=== PATIENT | male | born 1940 | race Two or more races ===

== ENCOUNTER 2021-10-09 14:54 | Inpatient (IN) | payer OTHER ==
[2021-10-09] MEDS ORDERED: SODIUM CHLORIDE 1,000 ML IV SCH (16:45)
[2021-10-09 17:50] LABS: INR 1.01 (0.83-1.09); PROTHROMBIN TIME (PATIENT) 11.6 SEC (9.7-13.0)
[2021-10-09 17:53] LABS: ACTIVATED PTT 36.2 SECONDS (25.2-36.5)
[2021-10-09 17:58] LABS: BASO % 0.4 % (0-2.0); EOS % 1.8 % (0-4.5); HEMOGLOBIN 14.9 GM/dL (11.7-16.9); LYMPH % 29.3 % (8-40); MCH 30.4 pg (25.7-33.7); MCHC 33.8 g/dl (32.0-35.9); MEAN CELL VOLUME 89.9 fl (80-96); MEAN PLT VOLUME 8.1 fl (7.5-11.1); MONO % 7.4 % (3.8-10.2); NEUT % 61.1 % (42.8-82.8); PLATELET COUNT 214 10^3/uL (134-434); RBC 4.89 M/mm3 (4.00-5.60); WHITE BLOOD COUNT 8.5 K/mm3 (4.0-10.0)
[2021-10-09 18:07] LABS: ALBUMIN 3.7 g/dl (3.4-5.0); CALCIUM 9.5 mg/dL (8.5-10.1)
[2021-10-09 18:09] LABS: BLOOD UREA NITROGEN 21.5 mg/dL (7-18)
[2021-10-09 18:11] LABS: CREATININE 1.4 mg/dL (0.55-1.3)
[2021-10-09 18:12] LABS: TOT PROT 7.4 g/dl (6.4-8.2)
[2021-10-09 18:14] LABS: BILIRUBIN,TOTAL 0.7 mg/dL (0.2-1)
[2021-10-09 19:28] LABS: EPI CELLS 1 /uL (0-25.1); HYALINE CASTS 1 /uL (0-3.1); PH,URINE 5.5 (5.0-8.0); URINE APPEARANCE CLOUDY; URINE BACTERIA 4999 /uL (0-1359); URINE BILIRUBIN NEGATIVE (NEGATIVE); URINE COLOR YELLOW; URINE GLUCOSE (UA) NEGATIVE (NEGATIVE); URINE KETONE NEGATIVE (NEGATIVE); URINE LEUK ESTERASE 3+ (NEGATIVE); URINE NITRITE NEGATIVE (NEGATIVE); URINE PROTEIN NEGATIVE (NEGATIVE); URINE RBC 7 /uL (0-23.9); URINE UROBILINOGEN 0.2 mg/dL (0.2-1.0); URINE WBC 406 /uL (0-25.8)
[2021-10-09] MEDS ORDERED: ASPIRIN 81 MG CHEWABLE TABLETS PO ONE (20:04)
[2021-10-09] MEDS ORDERED: ASPIRIN 81 MG CHEWABLE TABLETS ONE (20:46)
[2021-10-10] MEDS ORDERED: CEFTRIAXONE 1 GM in DEXTROSE 5%-WATER - 50 ML IVPB ONE (03:00)
[2021-10-10] MEDS ORDERED: DEXTROSE 5%-WATER - 50 ML IVPB ONE (03:19)
[2021-10-10] MEDS ORDERED: cefTRIAXone SODIUM 1 GM VIAL ONE (03:19)
[2021-10-10] MEDS: SODIUM CHLORIDE 1,000 ML IV SCH (03:22)
[2021-10-10 07:35] LABS: ALBUMIN 3.2 g/dl (3.4-5.0); MAGNESIUM 2.1 mg/dL (1.8-2.4)
[2021-10-10 07:36] LABS: BLOOD UREA NITROGEN 21.2 mg/dL (7-18)
[2021-10-10 07:38] LABS: CREATININE 1.1 mg/dL (0.55-1.3)
[2021-10-10 07:39] LABS: PHOSPHOROUS 4.1 mg/dL (2.5-4.9)
[2021-10-10 07:40] LABS: TOT PROT 6.5 g/dl (6.4-8.2)
[2021-10-10 07:41] LABS: BILIRUBIN,TOTAL 0.5 mg/dL (0.2-1)
[2021-10-10 08:01] LABS: BASO % 0.8 % (0-2.0); EOS % 3.5 % (0-4.5); HEMATOCRIT 42.3 % (35.4-49); HEMOGLOBIN 14.3 GM/dL (11.7-16.9); LYMPH % 41.5 % (8-40); MCH 30.2 pg (25.7-33.7); MCHC 33.8 g/dl (32.0-35.9); MEAN CELL VOLUME 89.3 fl (80-96); MEAN PLT VOLUME 8.4 fl (7.5-11.1); MONO % 7.9 % (3.8-10.2); NEUT % 46.3 % (42.8-82.8); PLATELET COUNT 204 10^3/uL (134-434); RBC 4.73 M/mm3 (4.00-5.60); RDW 13.9 % (11.9-15.9); WHITE BLOOD COUNT 6.7 K/mm3 (4.0-10.0)
[2021-10-10] MEDS: ASPIRIN COATED 81 MG TABLET.EC PO SCH (09:42)
[2021-10-10] MEDS: HEPARIN NA (PORCINE) 5,000 UNITS/ML 1ML VIAL SQ SCH ×2 (09:42→21:58)
[2021-10-10 14:42] VITALS: BMI 23.5
[2021-10-10] MEDS: ATORVASTATIN CA 40 MG TABLET (FP) PO SCH (21:58)
[2021-10-11] MEDS: SODIUM CHLORIDE 1,000 ML IV SCH ×2 (05:06→05:45)
[2021-10-11 06:56] LABS: BASO % 0.4 % (0-2.0); EOS % 3.2 % (0-4.5); HEMATOCRIT 42.3 % (35.4-49); HEMOGLOBIN 14.4 GM/dL (11.7-16.9); LYMPH % 39.5 % (8-40); MCH 30.4 pg (25.7-33.7); MEAN CELL VOLUME 89.5 fl (80-96); MEAN PLT VOLUME 8.2 fl (7.5-11.1); MONO % 8.5 % (3.8-10.2); NEUT % 48.4 % (42.8-82.8); PLATELET COUNT 194 10^3/uL (134-434); RBC 4.72 M/mm3 (4.00-5.60); RDW 14.1 % (11.9-15.9); WHITE BLOOD COUNT 7.4 K/mm3 (4.0-10.0)
[2021-10-11 07:35] LABS: ALBUMIN 3.1 g/dl (3.4-5.0); CALCIUM 8.9 mg/dL (8.5-10.1)
[2021-10-11 07:36] LABS: BLOOD UREA NITROGEN 25.8 mg/dL (7-18)
[2021-10-11 07:39] LABS: CREATININE 1.4 mg/dL (0.55-1.3)
[2021-10-11 07:40] LABS: TOT PROT 6.5 g/dl (6.4-8.2)
[2021-10-11] MEDS ORDERED: cefTRIAXone SODIUM 1 GM VIAL ONE (08:12)
[2021-10-11] MEDS ORDERED: DEXTROSE 5%-WATER - 50 ML IVPB ONE (08:13)
[2021-10-11] MEDS: CEFTRIAXONE 1 GM in DEXTROSE 5%-WATER - 50 ML IVPB SCH (09:20)
[2021-10-11] MEDS: ASPIRIN COATED 81 MG TABLET.EC PO SCH (09:21)
[2021-10-11] MEDS: HEPARIN NA (PORCINE) 5,000 UNITS/ML 1ML VIAL SQ SCH ×2 (09:21→22:06)
[2021-10-11] MEDS: ATORVASTATIN CA 40 MG TABLET (FP) PO SCH (22:06)
[2021-10-12] MEDS ORDERED: cefTRIAXone SODIUM 1 GM VIAL ONE (07:49)
[2021-10-12] MEDS ORDERED: DEXTROSE 5%-WATER - 50 ML IVPB ONE (07:49)
[2021-10-12 08:13] VITALS: TEMP 99.2
[2021-10-12] MEDS: ASPIRIN COATED 81 MG TABLET.EC PO SCH (09:29)
[2021-10-12] MEDS: CEFTRIAXONE 1 GM in DEXTROSE 5%-WATER - 50 ML IVPB SCH (09:29)
[2021-10-12] MEDS: HEPARIN NA (PORCINE) 5,000 UNITS/ML 1ML VIAL SQ SCH (09:29)
[2021-10-12 12:22] VITALS: BP 125/71; PULSE 65
[2021-10-12] MEDS ORDERED: ATORVASTATIN CA 40 MG TABLET (FP) PO ONE (12:34)
== END 2021-10-12 14:22 | disposition home or self-care (01) | DRG 65 ==
LOC: JER 14:54 → JERBED 20:19 → J2W 10-10 02:39
PROVIDERS: ADMIT Hospitalist; ATTEND Internal Medicine
DX: I63.9 Cerebral infarction, unspecified (principal); N39.0 Urinary tract infection, site not specified; N17.9 Acute kidney failure, unspecified; I10 Essential (primary) hypertension; E78.5 Hyperlipidemia, unspecified; N40.0 Benign prostatic hyperplasia without lower urinary tract symptoms; R29.702 NIHSS score 2
CPT/HCPCS: 36415; 70450-TC; 70551-TC; 71045-TC-FY; 76775-TC; 80053; 80061; 81003; 82550; 83036; 83735; 84100; 84484; 85025; 85610; 85730; 86850; 86900; 86901; 93005; 93010; 93880-TC; 97116-GP; 97162-GP; 99285-25; C9803; J1644; U0003; U0005

== ENCOUNTER 2022-09-23 17:18 | Observation (INO) | payer OTHER ==
[2022-09-23 17:39] VITALS: BMI 25.7
[2022-09-23 20:03] LABS: BASO % 0.6 % (0-2.0); EOS % 2.9 % (0-4.5); HEMATOCRIT 40.5 % (35.4-49); HEMOGLOBIN 13.3 GM/dL (11.7-16.9); LYMPH % 32.1 % (8-40); MCHC 32.9 g/dl (32.0-35.9); MEAN CELL VOLUME 91.3 fl (80-96); MEAN PLT VOLUME 9.1 fl (7.5-11.1); MONO % 7.8 % (3.8-10.2); NEUT % 56.6 % (42.8-82.8); PLATELET COUNT 223 10^3/uL (134-434); RBC 4.44 M/mm3 (4.00-5.60); RDW 14.4 % (11.9-15.9); WHITE BLOOD COUNT 6.5 K/mm3 (4.0-10.0)
[2022-09-23 20:06] LABS: EPI CELLS 20 /uL (0-25.1); HYALINE CASTS 0 /uL (0-3.1); PH,URINE 7.5 (5.0-8.0); URINE APPEARANCE CLEAR; URINE BACTERIA 44 /uL (0-1359); URINE BILIRUBIN NEGATIVE (NEGATIVE); URINE COLOR YELLOW; URINE GLUCOSE (UA) NEGATIVE (NEGATIVE); URINE KETONE TRACE (NEGATIVE); URINE LEUK ESTERASE TRACE (NEGATIVE); URINE NITRITE NEGATIVE (NEGATIVE); URINE PROTEIN 1+ (NEGATIVE); URINE RBC 216 /uL (0-23.9); URINE WBC 34 /uL (0-25.8)
[2022-09-23 20:13] LABS: INR 0.96 (0.83-1.09); PROTHROMBIN TIME (PATIENT) 11.1 SEC (9.7-13.0)
[2022-09-23 20:16] LABS: ACTIVATED PTT 34.1 SECONDS (25.2-36.5)
[2022-09-23 20:19] LABS: CALCIUM 8.9 mg/dL (8.5-10.1)
[2022-09-23 20:21] LABS: ALBUMIN 3.4 g/dl (3.4-5.0); BLOOD UREA NITROGEN 16.2 mg/dL (7-18); MAGNESIUM 2.2 mg/dL (1.8-2.4)
[2022-09-23 20:23] LABS: CREATININE 1.4 mg/dL (0.55-1.3)
[2022-09-23 20:25] LABS: BILIRUBIN,TOTAL 0.4 mg/dL (0.2-1)
[2022-09-23 20:26] LABS: TOT PROT 6.9 g/dl (6.4-8.2)
[2022-09-23] MEDS ORDERED: SODIUM CHLORIDE 1,000 ML IV SCH (23:45)
[2022-09-24] MEDS ORDERED: LEVOTHYROXINE NA 50 MCG TABLET (FP) PO SCH (07:00)
[2022-09-24 07:53] LABS: CALCIUM 8.2 mg/dL (8.5-10.1)
[2022-09-24 07:54] LABS: ALBUMIN 3.1 g/dl (3.4-5.0); BLOOD UREA NITROGEN 15.9 mg/dL (7-18)
[2022-09-24 07:57] LABS: CREATININE 1.2 mg/dL (0.55-1.3); PHOSPHOROUS 4.1 mg/dL (2.5-4.9)
[2022-09-24 07:58] LABS: TOT PROT 6.1 g/dl (6.4-8.2)
[2022-09-24 08:10] LABS: BASO % 0.7 % (0-2.0); EOS % 3.3 % (0-4.5); HEMATOCRIT 37.1 % (35.4-49); HEMOGLOBIN 12.5 GM/dL (11.7-16.9); LYMPH % 35.8 % (8-40); MCH 30.5 pg (25.7-33.7); MCHC 33.8 g/dl (32.0-35.9); MEAN CELL VOLUME 90.2 fl (80-96); MEAN PLT VOLUME 9.3 fl (7.5-11.1); NEUT % 51.2 % (42.8-82.8); PLATELET COUNT 199 10^3/uL (134-434); RBC 4.11 M/mm3 (4.00-5.60); WHITE BLOOD COUNT 7.1 K/mm3 (4.0-10.0)
[2022-09-24 08:34] LABS: BILIRUBIN,TOTAL 0.5 mg/dL (0.2-1)
[2022-09-24] MEDS ORDERED: LISINOPRIL 20 MG TABLET ONE (08:40)
[2022-09-24] MEDS ORDERED: ASPIRIN COATED 81 MG TABLET.EC ONE (08:40)
[2022-09-24] MEDS ORDERED: LEVOTHYROXINE NA 50 MCG TABLET (FP) ONE (08:40)
[2022-09-24] MEDS ORDERED: PANTOPRAZOLE 40 MG TABLET PO SCH (10:00)
[2022-09-24] MEDS ORDERED: DOXAZOSIN MESYLATE 8 MG TABLET PO SCH (10:00)
[2022-09-24] MEDS ORDERED: FINASTERIDE 5 MG TABLET (FP) PO SCH (10:00)
[2022-09-24] MEDS ORDERED: PATIENT'S OWN MEDICATION (NON-FORMULARY) (Linaclotide [Linzess] 145 MCG Capsule) PO SCH (10:00)
[2022-09-24] MEDS ORDERED: ASPIRIN COATED 81 MG TABLET.EC PO SCH (10:00)
[2022-09-24] MEDS ORDERED: PANTOPRAZOLE 40 MG TABLET PO ONE (10:23)
[2022-09-24] MEDS ORDERED: LOSARTAN POTASSIUM 50 MG TABLET PO SCH (11:00)
[2022-09-24] MEDS ORDERED: LOSARTAN POTASSIUM 50 MG TABLET ONE (13:07)
[2022-09-24] MEDS ORDERED: EZETIMIBE 10 MG TABLET (FP) PO SCH (14:30)
[2022-09-24] MEDS ORDERED: ATORVASTATIN CA 40 MG TABLET (FP) PO SCH (22:00)
[2022-09-24] MEDS ORDERED: DONEPEZIL HCL 5 MG TABLET (FP) PO SCH (22:00)
[2022-09-24] MEDS ORDERED: DONEPEZIL HCL 5 MG TABLET (FP) ONE (22:08)
[2022-09-24] MEDS ORDERED: ATORVASTATIN CA 40 MG TABLET (FP) ONE (22:08)
[2022-09-25 01:10] VITALS: BP 137/68; PULSE 69; RESP 16; TEMP 98.2
[2022-09-25 06:41] LABS: HEMATOCRIT 38.5 % (35.4-49); HEMOGLOBIN 13.1 GM/dL (11.7-16.9); MCH 30.6 pg (25.7-33.7); MCHC 33.9 g/dl (32.0-35.9); MEAN CELL VOLUME 90.2 fl (80-96); MEAN PLT VOLUME 9.1 fl (7.5-11.1); PLATELET COUNT 209 10^3/uL (134-434); RBC 4.26 M/mm3 (4.00-5.60); WHITE BLOOD COUNT 6.3 K/mm3 (4.0-10.0)
[2022-09-25 07:14] LABS: BLOOD UREA NITROGEN 21.6 mg/dL (7-18); CALCIUM 8.6 mg/dL (8.5-10.1)
[2022-09-25 07:15] LABS: MAGNESIUM 2.2 mg/dL (1.8-2.4)
[2022-09-25 07:17] LABS: CREATININE 1.3 mg/dL (0.55-1.3); PHOSPHOROUS 4.4 mg/dL (2.5-4.9)
== END 2022-09-25 10:03 | disposition home or self-care (01) ==
LOC: JER 17:18 → JERBED 09-24 07:36
PROVIDERS: ADMIT Internal Medicine; ATTEND Internal Medicine
DX: G45.9 Transient cerebral ischemic attack, unspecified (principal); N40.0 Benign prostatic hyperplasia without lower urinary tract symptoms; E78.5 Hyperlipidemia, unspecified; I45.10 Unspecified right bundle-branch block; E07.9 Disorder of thyroid, unspecified; R20.0 Anesthesia of skin; I10 Essential (primary) hypertension; Z87.891 Personal history of nicotine dependence; Z86.73 Personal history of transient ischemic attack (TIA), and cerebral infarction without residual deficits
CPT/HCPCS: 0241U-QW; 36415; 70450-TC; 71045-TC-FY; 80048; 80053; 80061; 81003; 82550; 83036; 83735; 84100; 84439; 84443; 84484; 85025; 85027; 85610; 85730; 86850; 86900; 86901; 87077; 87086; 93005; 93010; 93306-TC; 93880-TC; 99285-25; G0378

== ENCOUNTER 2023-03-08 19:31 | Emergency (ER) | payer OTHER ==
[2023-03-08 19:46] VITALS: BP 117/62; PULSE 69; RESP 18; BMI 25.8
[2023-03-08 21:15] LABS: PH,URINE 7.5 (5.0-8.0); URINE APPEARANCE TURBID; URINE BILIRUBIN MODERATE (NEGATIVE); URINE COLOR RED; URINE GLUCOSE (UA) NEGATIVE (NEGATIVE); URINE KETONE NEGATIVE (NEGATIVE); URINE LEUK ESTERASE 4+ (NEGATIVE); URINE NITRITE POSITIVE (NEGATIVE); URINE PROTEIN 4+ (NEGATIVE)
[2023-03-08 21:16] LABS: EPI CELLS 18.4 /uL (0-25.1); HYALINE CASTS 742.91 /uL (0-3.1); URINE BACTERIA 3286.3 /uL (0-1359); URINE RBC 9879.9 /uL (0-23.9); URINE WBC 17100.5 /uL (0-25.8)
[2023-03-08] MEDS ORDERED: SODIUM CHLORIDE 0.9% 500 ML INFUS.BAG IV ONE (21:38)
[2023-03-08 22:12] VITALS: TEMP 97.7
[2023-03-08] MEDS ORDERED: PHENAZOPYRIDINE HCL 100 MG TABLET (FP) PO ONE (22:30)
[2023-03-08] MEDS ORDERED: SULFAMETHOXAZOLE/TRIMETHOPRIM 800MG/160MG D.S. TABLET PO ONE (22:31)
[2023-03-08] MEDS ORDERED: IBUPROFEN 600 MG TABLET (FP) PO ONE (22:31)
[2023-03-08] MEDS ORDERED: PHENAZOPYRIDINE HCL 100 MG TABLET (FP) ONE (22:34)
[2023-03-08] MEDS ORDERED: SULFAMETHOXAZOLE/TRIMETHOPRIM 800MG/160MG D.S. TABLET ONE (22:34)
[2023-03-08] MEDS ORDERED: ACETAMINOPHEN 325 MG TABLET (FP) PO ONE (22:34)
[2023-03-08] MEDS ORDERED: ACETAMINOPHEN 325 MG TABLET (FP) ONE (22:36)
== END 2023-03-08 22:56 | disposition home or self-care (01) ==
LOC: JER 19:31
DX: R30.0 Dysuria (principal); N30.91 Cystitis, unspecified with hematuria
CPT/HCPCS: 81003; 99284-25

== ENCOUNTER 2024-10-10 21:14 | Observation (INO) | payer OTHER ==
[2024-10-10] MEDS: SODIUM CHLORIDE 0.9% 500 ML INFUS.BAG IV ONE (22:00)
[2024-10-10] MEDS ORDERED: ACETAMINOPHEN INJECTION 100 ML ONE (22:41)
[2024-10-10] MEDS: ACETAMINOPHEN 1000 MG/100 ML BAG IVPB ONE (22:45)
[2024-10-11] MEDS ORDERED: LOPERAMIDE HCL 2 MG CAPSULE GT PRN (03:14)
[2024-10-11 04:54] VITALS: BMI 22.6
[2024-10-11] MEDS: LEVOTHYROXINE NA 50 MCG TABLET (FP) GT SCH (06:20)
[2024-10-11] MEDS: DEXTROSE 5%-NORMAL SALINE 1,000 ML IV SCH (06:24)
[2024-10-11] MEDS ORDERED: MINERAL OIL ENEMA 133 ML ENEMA RC ONE ×2 (08:30→10:30)
[2024-10-11] MEDS: AMINO ACIDS/PROTEIN HYDROLYS 30 ML LIQUID.PKT GT SCH (08:57)
[2024-10-11 09:24] LABS: HEMATOCRIT 38.3 % (35.4-49); MCH 29.9 pg (25.7-33.7); MCHC 33.8 g/dl (32.0-35.9); MEAN CELL VOLUME 88.4 fl (80-96); MEAN PLT VOLUME 8.3 fl (7.5-11.1); PLATELET COUNT 292 10^3/uL (134-434); RBC 4.34 M/mm3 (4.00-5.60); RDW 14.8 % (11.9-15.9); WHITE BLOOD COUNT 11.2 K/mm3 (4.0-10.0)
[2024-10-11 09:44] LABS: POTASSIUM 3.7 mmol/L (3.5-5.1)
[2024-10-11] MEDS ORDERED: PATIENT'S OWN MEDICATION (NON-FORMULARY) (Alfuzosin Hcl [Uroxatral] 10 MG Tab.Er.24h) GT SCH (10:00)
[2024-10-11 10:04] LABS: ALBUMIN 2.3 g/dl (3.4-5.0); BLOOD UREA NITROGEN 27.9 mg/dL (7-18); CALCIUM 8.8 mg/dL (8.5-10.1)
[2024-10-11 10:07] LABS: CREATININE 0.7 mg/dL (0.55-1.3)
[2024-10-11 10:09] LABS: BILIRUBIN,TOTAL 0.7 mg/dL (0.2-1); TOT PROT 5.6 g/dl (6.4-8.2)
[2024-10-11] MEDS: levETIRAcetam 500 MG/5 ML ORAL SOLUTION (UNIT-DOSE CUPS) GT SCH (10:15)
[2024-10-11] MEDS: DOXAZOSIN MESYLATE 2 MG TABLET GT SCH (10:15)
[2024-10-11] MEDS: POLYETHYLENE GLYCOL (HEALTHYLAX) 3350 17 GM PACKET PO SCH (10:15)
[2024-10-11] MEDS: EZETIMIBE 10 MG TABLET (FP) GT SCH (10:18)
[2024-10-11] MEDS: FAMOTIDINE 20 MG/2.5 ML ORAL LIQUID PO SCH (10:18)
[2024-10-11] MEDS: FINASTERIDE 5 MG TABLET (FP) GT SCH (10:18)
[2024-10-11] MEDS: METOPROLOL TARTRATE 25 MG TABLET (FP) GT SCH (10:18)
[2024-10-11] MEDS: POTASSIUM CHLORIDE ORAL LIQUID 20 MEQ/15 ML GT SCH (10:18)
[2024-10-11] MEDS: MEMANTINE HCL 10 MG TABLET (FP) GT SCH (10:18)
[2024-10-11] MEDS: POLYETHYLENE GLYCOL (HEALTHYLAX) 3350 17 GM PACKET GT SCH (14:53)
[2024-10-11] MEDS: ACETAMINOPHEN 650 MG/20.3 ML ORAL SOLUTION (CUPS) PO ONE (16:22)
[2024-10-11] MEDS: DONEPEZIL HCL 10 MG TABLET (FP) GT SCH (21:44)
[2024-10-11] MEDS: ATORVASTATIN CA 80 MG TABLET (FP) GT SCH (21:44)
[2024-10-12 08:53] LABS: HEMATOCRIT 39.2 % (35.4-49); HEMOGLOBIN 12.9 GM/dL (11.7-16.9); MCH 29.6 pg (25.7-33.7); MCHC 32.8 g/dl (32.0-35.9); MEAN CELL VOLUME 90.4 fl (80-96); MEAN PLT VOLUME 8.6 fl (7.5-11.1); PLATELET COUNT 273 10^3/uL (134-434); RBC 4.34 M/mm3 (4.00-5.60); RDW 14.7 % (11.9-15.9); WHITE BLOOD COUNT 10.3 K/mm3 (4.0-10.0)
[2024-10-12 09:18] LABS: POTASSIUM 3.8 mmol/L (3.5-5.1)
[2024-10-12 09:30] LABS: BLOOD UREA NITROGEN 26.8 mg/dL (7-18); CALCIUM 8.7 mg/dL (8.5-10.1); MAGNESIUM 2.3 mg/dL (1.8-2.4)
[2024-10-12 09:33] LABS: CREATININE 0.9 mg/dL (0.55-1.3)
[2024-10-12 09:34] LABS: PHOSPHOROUS 3.2 mg/dL (2.5-4.9)
[2024-10-12 15:50] VITALS: RESP 18
[2024-10-13 10:08] VITALS: BP 132/76; PULSE 98; TEMP 98.6
[2024-10-13 10:09] LABS: HEMATOCRIT 38.6 % (35.4-49); MCH 30.3 pg (25.7-33.7); MCHC 33.7 g/dl (32.0-35.9); MEAN CELL VOLUME 89.9 fl (80-96); MEAN PLT VOLUME 8.1 fl (7.5-11.1); PLATELET COUNT 235 10^3/uL (134-434); RBC 4.29 M/mm3 (4.00-5.60); RDW 14.7 % (11.9-15.9); WHITE BLOOD COUNT 8.3 K/mm3 (4.0-10.0)
[2024-10-13] MEDS: METOCLOPRAMIDE HCL 10 MG/10 ML UNIT DOSE CUP GT SCH (11:48)
== END 2024-10-13 12:48 | disposition home or self-care (01) ==
LOC: JER 21:14 → JERBED 10-11 01:42 → J5S 10-11 04:39
PROVIDERS: ADMIT Internal Medicine; ATTEND Internal Medicine
PROC: 3E033NZ Introduction of Analgesics, Hypnotics, Sedatives into Peripheral Vein, Percutaneous Approach (ICD-10-PCS; principal; 2024-10-11)
PROC: 3E0337Z Introduction of Electrolytic and Water Balance Substance into Peripheral Vein, Percutaneous Approach (ICD-10-PCS; 2024-10-11)
DX: R11.10 Vomiting, unspecified (principal); K59.00 Constipation, unspecified; E78.5 Hyperlipidemia, unspecified; E03.9 Hypothyroidism, unspecified; I10 Essential (primary) hypertension; I69.351 Hemiplegia and hemiparesis following cerebral infarction affecting right dominant side; N40.0 Benign prostatic hyperplasia without lower urinary tract symptoms; F03.90 Unspecified dementia, unspecified severity, without behavioral disturbance, psychotic disturbance, mood disturbance, and anxiety; Z87.440 Personal history of urinary (tract) infections; Z87.442 Personal history of urinary calculi; Z90.89 Acquired absence of other organs; Z87.891 Personal history of nicotine dependence
CPT/HCPCS: 36415; 74018-TC-FY; 74177-TC; 80048; 80053; 82977; 83735; 84100; 85027; 93005; 93010; 96361; 96374; 97161-GP; 99285-25; G0378; J0131; Q9967

== ENCOUNTER 2024-11-01 03:56 | Inpatient (IN) | payer OTHER ==
[2024-11-01] MEDS ORDERED: ACETAMINOPHEN INJECTION 100 ML ONE (04:44)
[2024-11-01] MEDS ORDERED: ONDANSETRON 4 MG/2 ML VIAL ONE (04:44)
[2024-11-01] MEDS: ONDANSETRON 4 MG/2 ML VIAL IVPUSH ONE (05:00)
[2024-11-01] MEDS: ACETAMINOPHEN 1000 MG/100 ML BAG IVPB ONE (05:00)
[2024-11-01 05:23] LABS: VENOUS BASE EXCESS 0.5 mmol/L (-2-2); VENOUS O2 SATURATION 91.1 % (70-80); VENOUS PCO2 38.6 mmHg (38-52); VENOUS PH 7.425 (7.310-7.410)
[2024-11-01 05:33] LABS: INR 1.17 (0.83-1.09); PROTHROMBIN TIME (PATIENT) 12.8 SEC (9.7-13.0)
[2024-11-01 05:36] LABS: ACTIVATED PTT 33.8 SECONDS (25.2-36.5)
[2024-11-01 05:39] LABS: POTASSIUM 3.3 mmol/L (3.5-5.1)
[2024-11-01 05:41] LABS: BLOOD UREA NITROGEN 17.5 mg/dL (7-18); CALCIUM 8.1 mg/dL (8.5-10.1); MAGNESIUM 1.7 mg/dL (1.8-2.4)
[2024-11-01 05:42] LABS: ALBUMIN 1.9 g/dl (3.4-5.0)
[2024-11-01 05:44] LABS: CREATININE 0.9 mg/dL (0.55-1.3)
[2024-11-01 05:47] LABS: BILIRUBIN,TOTAL 0.8 mg/dL (0.2-1); TOT PROT 5.7 g/dl (6.4-8.2)
[2024-11-01 06:46] LABS: URINE APPEARANCE TURBID; URINE COLOR ORANGE
[2024-11-01 07:07] LABS: URINE BILIRUBIN SMALL (NEGATIVE); URINE GLUCOSE (UA) NEGATIVE (NEGATIVE); URINE KETONE NEGATIVE (NEGATIVE)
[2024-11-01 07:08] LABS: URINE LEUK ESTERASE MODERATE (NEGATIVE); URINE NITRITE POSITIVE (NEGATIVE); URINE PROTEIN 300 (NEGATIVE); URINE UROBILINOGEN 0.2 mg/dL (0.2-1.0)
[2024-11-01 07:09] LABS: EPI CELLS 8.6 /uL (0-25.1); HYALINE CASTS 489.4 /uL (0-3.1); URINE RBC 17311.4 /uL (0-23.9); URINE WBC 12335.4 /uL (0-25.8)
[2024-11-01 07:10] LABS: URINE BACTERIA 885.4 /uL (0-1359)
[2024-11-01] MEDS: LACTATED RINGERS SOLUTION 1000 ML INFUS.BAG IV ONE (07:12)
[2024-11-01] MEDS ORDERED: PIPERACILLIN/TAZOB 4.5 GM 4.5 GM/100 ML BAG IVPB ONE (07:38)
[2024-11-01] MEDS ORDERED: HEPARIN INFUSION - 500 ML IVPB SCH (07:45)
[2024-11-01] MEDS: PIPERACILLIN/TAZOB 4.5 GM 4.5 GM in DEXTROSE 5%-WATER 100 ML IVPB ONE (07:53)
[2024-11-01] MEDS ORDERED: MAGNESIUM SULF 50% (8.12 MEQ/2 ML-1 GM VIAL) IVPB ONE (07:57)
[2024-11-01 08:31] LABS: ABSOLUTE IMMATURE GRANULOCYTES 0.03 x10^3/uL (0.0-0.031); BASOPHILS # 0.01 x10^3/uL (0.01-0.08); EOSINOPHIL % 0.1 % (0.8-7.0); EOSINOPHILS # 0.01 x10^3/uL (0.04-0.54); HEMATOCRIT 39.3 % (40.1-51.0); HEMOGLOBIN 12.5 g/dL (13.7-17.5); MCHC 31.8 g/dl (32.3-36.5); MEAN CELL VOLUME 90.6 fl (79.0-92.2); MEAN PLT VOLUME 9.3 fl (9.4-12.4); MONOCYTE # 0.69 x10^3/uL (0.30-0.82); MONOCYTE % 6.1 % (5.3-12.2); PLATELET COUNT 301 x10^3/uL (163-337); RDW 13.2 % (12.6-16.6)
[2024-11-01] MEDS ORDERED: HEPARIN NA (PORCINE) 5,000 UNITS/ML 1ML VIAL IVPUSH PRN (09:08)
[2024-11-01] MEDS ORDERED: MAGNESIUM SULFATE IN WATER 2 GM/50 ML IVPB IVPB ONE (09:12)
[2024-11-01] MEDS: HEPARIN NA (PORCINE) 5,000 UNITS/ML 1ML VIAL IVPUSH ONE (09:20)
[2024-11-01] MEDS: MAGNESIUM SULF 50% (8.12 MEQ/2 ML-1 GM VIAL) IVPB ONE (09:21)
[2024-11-01] MEDS ORDERED: HEPARIN INFUSION - 25,000 UNITS/500 ML INFUS.BAG IVPB ONE (09:46)
[2024-11-01] MEDS ORDERED: HEPARIN NA (PORCINE) 5,000 UNITS/ML 1ML VIAL ONE (09:48)
[2024-11-01] MEDS: HEPARIN INFUSION - 25,000 UNITS/500 ML INFUS.BAG IVPB SCH (10:00)
[2024-11-01] MEDS ORDERED: METOPROLOL TARTRATE 25 MG TABLET (FP) ONE (12:20)
[2024-11-01] MEDS ORDERED: POTASSIUM CHLORIDE ORAL LIQUID 20 MEQ/15 ML ONE (12:21)
[2024-11-01] MEDS ORDERED: levETIRAcetam 500 MG/5 ML ORAL SOLUTION (UNIT-DOSE CUPS) ONE (12:21)
[2024-11-01] MEDS: levETIRAcetam 500 MG/5 ML ORAL SOLUTION (UNIT-DOSE CUPS) GT SCH (12:36)
[2024-11-01] MEDS: POTASSIUM CHLORIDE ORAL LIQUID 20 MEQ/15 ML GT ONE (12:37)
[2024-11-01] MEDS: METOPROLOL TARTRATE 25 MG TABLET (FP) GT SCH (12:37)
[2024-11-01] MEDS ORDERED: POLYETHYLENE GLYCOL 3350 255 GM BTL PO PRN (12:57)
[2024-11-01] MEDS ORDERED: POLYETHYLENE GLYCOL (HEALTHYLAX) 3350 17 GM PACKET PO PRN (12:59)
[2024-11-01] MEDS: SODIUM CHLORIDE 1,000 ML IV SCH (14:48)
[2024-11-01 15:02] LABS: ABSOLUTE IMMATURE GRANULOCYTES 0.05 x10^3/uL (0.0-0.031); BASOPHILS # 0.05 x10^3/uL (0.01-0.08); EOSINOPHIL % 0.1 % (0.8-7.0); EOSINOPHILS # 0.01 x10^3/uL (0.04-0.54); HEMATOCRIT 42.6 % (40.1-51.0); HEMOGLOBIN 13.4 g/dL (13.7-17.5); MCHC 31.5 g/dl (32.3-36.5); MEAN CELL VOLUME 90.1 fl (79.0-92.2); MEAN PLT VOLUME 9.3 fl (9.4-12.4); MONOCYTE # 0.55 x10^3/uL (0.30-0.82); MONOCYTE % 5.1 % (5.3-12.2); RDW 13.3 % (12.6-16.6)
[2024-11-01 16:11] LABS: PLATELET COUNT 390 x10^3/uL (163-337)
[2024-11-01 21:10] LABS: HEMATOCRIT 39.6 % (40.1-51.0); HEMOGLOBIN 12.4 g/dL (13.7-17.5); MCHC 31.3 g/dl (32.3-36.5); MEAN PLT VOLUME 9.3 fl (9.4-12.4); PLATELET COUNT 347 x10^3/uL (163-337); RDW 13.5 % (12.6-16.6)
[2024-11-01] MEDS: HEPARIN - 25,000 UNIT in SODIUM CHLORIDE 495 ML IV SCH (21:20)
[2024-11-01] MEDS: DONEPEZIL HCL 10 MG TABLET (FP) GT SCH (22:01)
[2024-11-01] MEDS: ATORVASTATIN CA 80 MG TABLET (FP) GT SCH (22:01)
[2024-11-02] MEDS: ENOXAPARIN NA (PORCINE) 80 MG/0.8 ML DISP.SYRIN SQ SCH (05:34)
[2024-11-02] MEDS: LEVOTHYROXINE NA 50 MCG TABLET (FP) GT SCH (06:57)
[2024-11-02 07:24] LABS: HEMATOCRIT 36.2 % (40.1-51.0); HEMOGLOBIN 11.3 g/dL (13.7-17.5); MCHC 31.2 g/dl (32.3-36.5); MEAN PLT VOLUME 9.7 fl (9.4-12.4); PLATELET COUNT 329 x10^3/uL (163-337); RDW 13.7 % (12.6-16.6)
[2024-11-02 07:44] LABS: POTASSIUM 3.9 mmol/L (3.5-5.1)
[2024-11-02 08:00] LABS: CALCIUM 8.2 mg/dL (8.5-10.1)
[2024-11-02 08:01] LABS: BLOOD UREA NITROGEN 23.1 mg/dL (7-18); MAGNESIUM 2.2 mg/dL (1.8-2.4)
[2024-11-02 08:03] LABS: CREATININE 0.8 mg/dL (0.55-1.3)
[2024-11-02 08:04] LABS: PHOSPHOROUS 2.5 mg/dL (2.5-4.9)
[2024-11-02] MEDS ORDERED: PANTOPRAZOLE 40 MG TABLET PO SCH (10:00)
[2024-11-02] MEDS ORDERED: AZITHROMYCIN IVPB 500 MG/250 ML BAG IVPB SCH (10:00)
[2024-11-02] MEDS: POTASSIUM CHLORIDE ORAL LIQUID 20 MEQ/15 ML GT SCH (11:43)
[2024-11-02] MEDS: FAMOTIDINE 20 MG/2.5 ML ORAL LIQUID GT SCH (11:44)
[2024-11-02] MEDS: FINASTERIDE 5 MG TABLET (FP) GT SCH (11:44)
[2024-11-02] MEDS: metoPROLOL SUCCINATE 25 MG TAB.SR.24H (FP) PO SCH (11:44)
[2024-11-02] MEDS: AMINO ACIDS/PROTEIN HYDROLYS 30 ML LIQUID.PKT GT SCH (11:44)
[2024-11-02] MEDS: MEMANTINE HCL 10 MG TABLET (FP) GT SCH (11:44)
[2024-11-02] MEDS: CEFTRIAXONE 1 G/50 ML PREMIX 50 ML IVPB SCH (11:45)
[2024-11-02] MEDS: DOXYCYCLINE INJECTION 100 MG in DEXTROSE 5%-WATER 100 ML IVPB SCH (11:45)
[2024-11-02] MEDS: EZETIMIBE 10 MG TABLET (FP) GT SCH (11:45)
[2024-11-02] MEDS: TERAZOSIN HCL 1 MG CAPSULE GT SCH (11:46)
[2024-11-02] MEDS ORDERED: HEPARIN NA (PORCINE) 5,000 UNITS/ML 1ML VIAL IVPUSH PRN ×2 (13:47)
[2024-11-02] MEDS: HEPARIN - 25,000 UNIT in SODIUM CHLORIDE 495 ML IV SCH (21:23)
[2024-11-03 07:57] LABS: HEMATOCRIT 33.9 % (40.1-51.0); HEMOGLOBIN 10.4 g/dL (13.7-17.5); MCHC 30.7 g/dl (32.3-36.5); MEAN CELL VOLUME 91.4 fl (79.0-92.2); MEAN PLT VOLUME 9.9 fl (9.4-12.4); PLATELET COUNT 304 x10^3/uL (163-337); RDW 13.9 % (12.6-16.6)
[2024-11-03 08:15] LABS: POTASSIUM 3.6 mmol/L (3.5-5.1)
[2024-11-03 08:25] LABS: BLOOD UREA NITROGEN 26.4 mg/dL (7-18)
[2024-11-03 08:26] LABS: ALBUMIN 1.6 g/dl (3.4-5.0); CALCIUM 7.9 mg/dL (8.5-10.1); MAGNESIUM 1.9 mg/dL (1.8-2.4)
[2024-11-03 08:29] LABS: CREATININE 0.8 mg/dL (0.55-1.3); PHOSPHOROUS 2.3 mg/dL (2.5-4.9)
[2024-11-03 08:30] LABS: BILIRUBIN,TOTAL 0.4 mg/dL (0.2-1)
[2024-11-03 14:33] VITALS: BMI 20.3
[2024-11-04] MEDS: ACETAMINOPHEN 1000 MG/100 ML BAG IVPB ONE ×2 (06:30→19:54)
[2024-11-04] MEDS ORDERED: METOPROLOL TARTRATE 5 MG/5 ML VIAL IVPUSH PRN (06:32)
[2024-11-04 09:41] LABS: HEMATOCRIT 29.3 % (40.1-51.0); HEMOGLOBIN 9.1 g/dL (13.7-17.5); MCHC 31.1 g/dl (32.3-36.5); MEAN CELL VOLUME 90.7 fl (79.0-92.2); MEAN PLT VOLUME 9.6 fl (9.4-12.4); PLATELET COUNT 265 x10^3/uL (163-337); RDW 13.7 % (12.6-16.6)
[2024-11-04 09:57] LABS: POTASSIUM 3.5 mmol/L (3.5-5.1)
[2024-11-04 10:06] LABS: BLOOD UREA NITROGEN 19.7 mg/dL (7-18); CALCIUM 7.8 mg/dL (8.5-10.1); MAGNESIUM 1.8 mg/dL (1.8-2.4)
[2024-11-04 10:07] LABS: ALBUMIN 1.5 g/dl (3.4-5.0)
[2024-11-04 10:10] LABS: BILIRUBIN,TOTAL 0.5 mg/dL (0.2-1); CREATININE 0.6 mg/dL (0.55-1.3); PHOSPHOROUS 2.4 mg/dL (2.5-4.9); TOT PROT 4.6 g/dl (6.4-8.2)
[2024-11-04] MEDS: METOPROLOL TARTRATE 25 MG TABLET (FP) PO SCH (10:51)
[2024-11-04] MEDS: APIXABAN 5 MG TABLET PO ONE (15:38)
[2024-11-04] MEDS: APIXABAN 5 MG TABLET PO SCH (21:54)
[2024-11-05 07:05] LABS: HEMATOCRIT 30.9 % (40.1-51.0); HEMOGLOBIN 9.6 g/dL (13.7-17.5); MCHC 31.1 g/dl (32.3-36.5); MEAN PLT VOLUME 9.5 fl (9.4-12.4); PLATELET COUNT 265 x10^3/uL (163-337); RDW 13.6 % (12.6-16.6)
[2024-11-05 07:33] LABS: POTASSIUM 3.7 mmol/L (3.5-5.1)
[2024-11-05 07:52] LABS: BLOOD UREA NITROGEN 17.2 mg/dL (7-18)
[2024-11-05 07:53] LABS: ALBUMIN 1.5 g/dl (3.4-5.0)
[2024-11-05 07:55] LABS: CREATININE 0.5 mg/dL (0.55-1.3)
[2024-11-05 07:56] LABS: PHOSPHOROUS 2.9 mg/dL (2.5-4.9)
[2024-11-05 07:57] LABS: MAGNESIUM 1.6 mg/dL (1.8-2.4); TOT PROT 4.8 g/dl (6.4-8.2)
[2024-11-05 08:00] LABS: BILIRUBIN,TOTAL 0.3 mg/dL (0.2-1)
[2024-11-05] MEDS: ACETAMINOPHEN 1000 MG/100 ML BAG IVPB PRN (19:57)
[2024-11-06 07:32] LABS: POTASSIUM 3.8 mmol/L (3.5-5.1)
[2024-11-06 07:36] LABS: MAGNESIUM 1.8 mg/dL (1.8-2.4)
[2024-11-06 07:39] LABS: CALCIUM 8.5 mg/dL (8.5-10.1)
[2024-11-06 07:40] LABS: CREATININE 0.6 mg/dL (0.55-1.3)
[2024-11-06] MEDS ORDERED: LOPERAMIDE HCL 1 MG/7.5 ML LIQUID GT SCH (10:00)
[2024-11-06] MEDS: LOPERAMIDE HCL 1 MG/7.5 ML LIQUID GT PRN (10:44)
[2024-11-06 12:21] LABS: HEMATOCRIT 28.4 % (40.1-51.0); HEMOGLOBIN 8.8 g/dL (13.7-17.5); MEAN CELL VOLUME 90.7 fl (79.0-92.2); MEAN PLT VOLUME 9.5 fl (9.4-12.4); PLATELET COUNT 235 x10^3/uL (163-337); RDW 13.8 % (12.6-16.6)
[2024-11-06] MEDS: BANATROL PLUS POWDER PACKET PEG SCH (21:12)
[2024-11-07 07:16] LABS: HEMATOCRIT 30.6 % (40.1-51.0); HEMOGLOBIN 9.6 g/dL (13.7-17.5); MCHC 31.4 g/dl (32.3-36.5); PLATELET COUNT 224 x10^3/uL (163-337); RDW 13.6 % (12.6-16.6)
[2024-11-07 07:39] LABS: POTASSIUM 3.5 mmol/L (3.5-5.1)
[2024-11-07 07:46] LABS: CALCIUM 7.8 mg/dL (8.5-10.1)
[2024-11-07 07:47] LABS: ALBUMIN 1.6 g/dl (3.4-5.0); BLOOD UREA NITROGEN 12.3 mg/dL (7-18); MAGNESIUM 1.5 mg/dL (1.8-2.4)
[2024-11-07 07:50] LABS: CREATININE 0.6 mg/dL (0.55-1.3); PHOSPHOROUS 3.1 mg/dL (2.5-4.9)
[2024-11-07 07:51] LABS: BILIRUBIN,TOTAL 0.4 mg/dL (0.2-1)
[2024-11-07 18:02] VITALS: BP 139/75; PULSE 86; RESP 20; TEMP 97.5
== END 2024-11-07 19:09 | disposition home or self-care (01) | DRG 175 ==
LOC: JER 03:56 → JERBED 09:03 → J4W 18:26
PROVIDERS: ADMIT Internal Medicine; ATTEND Internal Medicine
DX: I26.99 Other pulmonary embolism without acute cor pulmonale (principal); J69.0 Pneumonitis due to inhalation of food and vomit; N39.0 Urinary tract infection, site not specified; I47.20 Ventricular tachycardia, unspecified; F03.90 Unspecified dementia, unspecified severity, without behavioral disturbance, psychotic disturbance, mood disturbance, and anxiety; N40.0 Benign prostatic hyperplasia without lower urinary tract symptoms; E03.9 Hypothyroidism, unspecified; I10 Essential (primary) hypertension; E78.5 Hyperlipidemia, unspecified; R31.9 Hematuria, unspecified; N20.0 Calculus of kidney; Z93.1 Gastrostomy status; G40.909 Epilepsy, unspecified, not intractable, without status epilepticus
CPT/HCPCS: 0241U-QW; 36415; 71045-TC-FY; 74177-TC; 80048; 80053; 81003; 82272; 82803; 82962; 83605; 83690; 83735; 84100; 84484; 85025; 85027; 85610; 85730; 86850; 86900; 86901; 87040; 87086; 87186; 93005; 93010; 93306-TC; 99285-25; J0131; J1644; Q9967